=== PATIENT | female | born 1950 | race American Indian/Alaskan Native ===

== ENCOUNTER 2017-06-07 13:35 | Outpatient (CLI) | payer MEDICARE ==
--- NOTE | 2017-06-08 09:47 | XRay Report ---
RIGHT KNEE RADIOGRAPHS INDICATION: Knee pain. COMPARISON: None similar at this institution. FINDINGS: AP, lateral, oblique and sunrise views of the right knee demonstrate intact articulation. Mild medial compartment narrowing and mild degenerative spurring possible. No suprapatellar effusion. Possible osteopenia. CONCLUSION: No acute right knee radiographic abnormality with mild medial compartment osteoarthrosis suspected, as described. Thank you for the opportunity to participate in this patient's care.
== END 2017-06-07 13:36 | disposition home or self-care (01) ==
LOC: SPVIMAG 13:35
PROVIDERS: ATTEND Orthopaedic Surgery
DX: M25.561 Pain in right knee (principal)